=== PATIENT | female | born 1945 | race Caucasian/White ===

== ENCOUNTER → 2016-07-02 | Outpatient (CLI) | payer OTHER, MEDICARE ==
--- NOTE | 2016-07-02 13:46 | MAMMOGRAPHY REPORT ---
BILATERAL DIGITAL SCREENING MAMMOGRAM WITH CAD: 07/02/2016 CLINICAL HISTORY: Routine screening. Patient has no complaints. TECHNIQUE: Current study was also evaluated with a Computer Aided Detection (CAD) system. Bilatera l CC and MLO views were obtained. COMPARISON: Comparison is made to exams dated: 07/01/2015 mammogram, 06/27/2014 mammogram, 06/26/2013 mammogram, 06/16/2012 mammogram, 06/12/2011 mammogram, and 06/19/2011 mammogram - [facility]. BREAST COMPOSITION: There are scattered areas of fibroglandular density in both breasts. FINDINGS: No suspicious masses, calcifications, or areas of architectural distortion are noted in e ither breast. There has been no significant interval change compared to prior exams. IMPRESSION: ACR BI-RADS CATEGORY 1: NEGATIVE There is no mammographic evidence of malignancy. A 1 year screening mammogram is recommended. The p atient will receive written notification of the results. Approximately 10% of breast cancers are not detected with mammography. A negative mammographic repor t should not delay biopsy if a clinically suggestive mass is present. Heather Beltran M.D. ah/:07/02/2016 07:51:21 Percolator Operator: Ada COBOS(Marivel)(M), [facility] letter sent: Normal 1/2 BI-RADS Code: ACR BI-RADS Category 1: Negative
== END | disposition home or self-care (01) ==
LOC: C.MAMM 07:14
PROVIDERS: ATTEND Family Medicine
DX: Z12.31 Encounter for screening mammogram for malignant neoplasm of breast (principal)

== ENCOUNTER → 2016-09-02 | Outpatient (CLI) | payer OTHER, MEDICARE ==
--- NOTE | 2016-09-03 05:36 | SPLIT NIGHT TECHNICIAN REPORT ---
[facility] Split Night Polysomnogram - Balloon Design Printer Report Study date: 09/02/2016 Referring Physician: Michelle Birch M.D. Name: KJ HORNE Balloon Design Printer: Laura Vallecillo [facility] Date of : 1945 Height: 70 years, Height 5' 5" Sex: Female Weight: 191 lbs Age: 70 Neck Circum: 14 inches BMI: Medications: 31.78 Prescription: Omeprazole, Estradiol, Polyethelyne, Flunisolide, Azelastine, Prednisolone Acetate Ophthalmic suspension, Ketorolac Solution OTC: Asad-E 400 mg, Cranberry capsules 500 mg, Lecithin 1200 mg, Magnesium 500 mg, Flax seed oil, Potassium Gluconate 595 mg, Calcium 500 mg, Loratadine 10 mg, Aspirin 81 mg, Slo Niacin 500 mg, Red Rice Yeast 600 mg, [place] 3-6-9 daily, Co Q 10 50 mg daily, Eye Promise Restore, Garlic 1000 mg, Jessa Root 550 mg, Multi Vitamins, Vitamin C, Biotin 5000 mcg Patient History 70 yr. old female here for a possible split night sleep study. Patient was diagnosed with DOMINIK in 2003 but could not tolerate CPAP. Patients [place] Sleepiness Scale score is 5/24. Parameters Monitored NPSG: E1-M2, E2-M1, Fp1-M2, Fp2-M1, F3-M2, F4-M2, F4-M1, C3-M2, C4-M2, C4-M1, O1-M2, O2-M2, O2-M1, T3-M2, T4-M1, P3-M2, P4-M1, CHIN1, CHIN2, HR, EKG, Legs, PFLOW, SNOR, FLOW, CFLOW, Tidal Volume, THOR, ABDO, SpO2, PLTH, CPRESS, ETCO2 Wave, ETCO2, pH SLEEP SUMMARY DATA DIAGNOSTIC TREATMENT Lights Out: 9:52:04 PM 12:11:34 AM Lights On: 12:03:34 AM 5:23:04 AM Total Recording Time (TRT): 132.0 min. 312.0 min. Total Sleep Time (TST): 121.5 min. 229.5 min. NREM Time: 121.5 min. 194.0 min. REM Time: 0.0 min. 35.5 min. Sleep Period Time (SPT): 125.5 min. 274.5 min. Sleep Efficiency (SE): 92 % 74 % Sleep Latency: 6.0 min. 9.0 min. Arousal Index: 11.4 7.3 PAP Treatment Levels: 4, 5, 6, 7, 8 * Optimal Pressure(s) SLEEP STAGING DATA DIAGNOSTIC TREATMENT Duration (min) TST % Duration (min) TST % Stage Wake: 10.0 min. -- 82.5 min. -- WASO: 4.0 min. -- 45.0 min. -- NREM: 121.5 min. 100 % 194.0 min. 85 % Stage N1: 13.5 min. 11 % 21.0 min. 9 % Stage N2: 105.0 min. 86 % 137.5 min. 60 % Stage N3: 3.0 min. 2 % 35.5 min. 15 % REM: 0.0 min. 0 % 35.5 min. 15 % POSITIONAL DATA Event Count Index Event Count Index Supine: 146 72.1 26 6.8 Supine NREM: 146 72.1 25 7.7 Supine REM: N/A N/A 1 2 Non-Supine: N/A N/A N/A N/A Non-Supine NREM: N/A N/A N/A N/A Non-Supine REM: N/A N/A N/A N/A AROUSAL SUMMARY DATA: Event Count Index Event Count Index Apnea Arousals: 2 4.0 0 0.3 Hypopnea Arousals: 12 5.9 1 0.3 Snore Arousals: 0 0.0 0 0.0 PLM Arousals: 0 0.0 8 2.1 Non-Specific Arousals: 9 4.4 5 1.3 Total Arousals: 23 11.4 28 7.3 MYOCLONUS (PLM) Event Count Index Event Count Index PLM: 3 1.5 93 24.3 PLM AROUSAL: 0 0.0 8 2.1 PLM W/O AROUSAL 3 1.5 85 22.2 PLM W/RESP EVENT 1 0.0 5 0.0 MYOCLONUS (PLM) Event Count Index Event Count Index LM: 2 30.6 49 12.8 LM AROUSAL: 2 1.0 14 3.7 LM W/O AROUSAL LM W/RESP EVENT LM NON SPECIFIC 16 7.9 107 28.0 HEART RATE DATA DIAGNOSTIC TREATMENT Sleep (bpm): 89 86 REM (bpm): N/A 91 NREM (bpm): 91 92 Tachycardia Count: 0 0 Tachycardia Duration: 0.00 0 Bradycardia Count: 0 0 Bradycardia Duration: 0.00 0 DIAGNOSTIC PORTION TREATMENT PORTION RESPIRATORY DATA Event Count Index Event Count Index AHI: -- 72.1 -- 6.8 RDI: -- 72.1 -- 7 Obstructive Apnea: 7 3.5 0 0.0 Central Apnea: 0 0.0 1 0.3 Mixed Apnea: 1 0.5 0 0.0 Hypopnea: 138 68.1 25 6.5 RERA: 0 0.0 0 0.0 Total Apneas: 8 4.0 1 0.3 RESPIRATORY DATA REM NREM SLEEP REM NREM SLEEP Supine Position: Obstructive Apneas: N/A 7 7 0 0 0 Central Apneas: N/A 0 0 0 1 1 Mixed Apneas: N/A 1 1 0 0 0 Hypopneas: N/A 138 138 1 24 25 RERA N/A 0 0 0 0 0 Total Supine Events: N/A 146 146 1 25 26 Supine AHI: N/A 72.1 72.1 2 7.7 6.8 Supine RDI: N/A 72.1 72.1 1.7 7.7 6.8 REM NREM SLEEP REM NREM SLEEP Non-Supine Position: Obstructive Apneas: N/A N/A N/A N/A N/A N/A Central Apneas: N/A N/A N/A N/A N/A N/A Mixed Apneas: N/A N/A N/A N/A N/A N/A Hypopneas: N/A N/A N/A N/A N/A N/A RERA N/A N/A N/A N/A N/A N/A Total Supine Events: N/A N/A N/A N/A N/A N/A Supine AHI: N/A N/A N/A N/A N/A N/A Supine RDI: N/A N/A N/A N/A N/A N/A OXYGEN DESTAURATION DATA: Event Count Index Event Count Index REM Desaturations: N/A N/A 2 3.4 NREM Desaturations: 135 66.7 26 8.0 SNORE DATA DIAGNOSTIC TREATMENT Snore Time: 1.1 12:20:34 AM Snore TST%: 1 1 Snore Arousal Count: 0 0 Snore Arousal Index: 0.0 0.0 Desaturation Event Summary: Minimum %SpO2 Event Count Mean/Min/Max Duration(sec.) Desaturation Index % Time In Bed > 90 166 23.4 / 4.3 / 60.0 28.0 81.4 86 - 90 22 19.8 / 4.5 / 51.0 16.5 18.2 81 - 85 0 N/A 0.0 0.3 76 - 80 0 N/A 0.0 0.0 71 - 75 0 N/A 0.0 0.0 66 - 70 0 N/A 0.0 0.0 61 - 65 0 N/A 0.0 0.0 56 - 60 0 N/A 0.0 0.0 51 - 55 0 N/A 0.0 0.0 < 50 0 N/A 0.0 0.0 OXYGEN SATURATION DATA DIAGNOSTIC TREATMENT SpO2 Mean Sleep: 91 % 92 % SpO2 Mean REM: N/A % 91 % SpO2 Mean NREM: 91 % 92 % SpO2 Minimum Sleep: 83 % 87 % SpO2 Minimum REM: N/A % 87 % SpO2 Minimum NREM: 83 % 87 % Time Below 90% (TST): 26.7 13.0 Time Below 88% (TST): 8.6 0.7 Total REM NREM Awake <50% 0.0 min. 0.0 min. 0.0 min. 0.0 min. 51 - 60% 0.0 min. 0.0 min. 0.0 min. 0.0 min. 61 - 70% 0.0 min. 0.0 min. 0.0 min. 0.0 min. 71 - 80% 0.0 min. 0.0 min. 0.0 min. 0.0 min. 81 - 90% 81.2 min. 8.4 min. 68.4 min. 4.5 min. 91 - 100% 356.1 min. 27.1 min. 247.1 min. 81.8 min. Average 92 91 92 93 Minimum SpO2 82 87 83 82 Desaturation Event Index 22.9 3.4 30.6 4.6 # Desat. Events below 89% 90 1 88 1 Time(%) with Saturation below 89% 4.2 0.3 3.8 0.1 Time(min.) with Saturation below 89% 18.3 1.5 16.5 0.3 Recording Balloon Design Printer Comments: MS. Horne slept in the supine positione. No cardiac arrhythmia. PLMs noted. No bruxism noted. Snoring was noted and scored as a1 on a scale of 0 through 5. (0=no snoring, 5=snoring loud enough to be heard through a closed door or down the garcia way) At 12:11 pm, MS. Horne met specific Split-Night criteria during the diagnostic portion of this study. CPAP was initiated at +4 CMH2O room air and up-titrated to an optimal level of +8 CMH2O Cflex, 2. A small ResMed F10, was used during titration. MS. Horne awoke to use the restroom once during the night. MS. Horne stated,I usually roll from side to side. The final report will be interpreted and signed by a sleep physician. The completed physician report will then be placed in the patient medical record. Therapy Event: Therapy (cm H20) 0 4 5 6 7 8 Total Time at Pressure (min.) 131.5 36.1 11.0 22.0 38.0 204.4 TST at Pressure (min.) 121.5 25.6 11.0 22.0 38.0 132.9 # Periods 1 1 1 1 1 1 Sleep Onset (min.) 6.0 9.0 0.0 0.0 0.0 0.0 REM Onset (min.) N/A N/A N/A N/A 22.4 0.0 Sleep Efficiency % 92 70 100 100 100 65 Wakefulness (%) 7.6 29.1 0.0 0.0 0.0 35.0 Wakefulness (min.) 10.0 10.5 0.0 0.0 0.0 71.5 NREM 1 (%) 10.3 19.4 9.1 0.0 0.0 6.4 NREM 1 (min.) 13.5 7.0 1.0 0.0 0.0 13.0 NREM 2 (%) 79.8 51.6 90.9 79.2 26.3 39.9 NREM 2 (min.) 105.0 18.6 10.0 17.4 10.0 81.5 NREM 3 (%) 2.3 0.0 0.0 20.8 32.6 9.1 NREM 3 (min.) 3.0 0.0 0.0 4.6 12.4 18.5 REM (%) 0.0 0.0 0.0 0.0 41.1 9.7 REM (min.) 0.0 0.0 0.0 0.0 15.6 19.9 # Arousals 23 1 3 2 0 22 Arousal Index 11.4 2.3 16.4 5.5 0.0 9.9 # Snore 47 4 3 1 8 1 Snore Index 23.2 9.4 16.4 2.7 12.6 0.5 AHI 72.1 11.7 60.3 10.9 6.3 0.9 AHI Supine 72.1 11.7 60.3 10.9 6.3 0.9 AHI Non-Supine N/A N/A N/A N/A N/A N/A NREM AHI 72.1 11.7 60.3 10.9 8.0 1.1 REM AHI N/A N/A N/A N/A 3.8 0.0 RDI 72.1 11.7 60.3 10.9 6.3 0.9 # Obstructive 7 0 0 0 0 0 # Central Ap 0 0 0 0 0 1 # Mixed 1 0 0 0 0 0 # Hypopneas 138 5 11 4 4 1 RERAS 0 0 0 0 0 0 Total Respiratory Events 146 5 11 4 4 2 Time Below SpO2 89.00% (min.) 15.3 0.2 0.4 0.0 2.0 0.0 Mean NREM SpO2 (%) 91 91 91 91 92 92 Mean REM SpO2 (%) N/A N/A N/A N/A 91 92 Mean Sleep SpO2 (%) 91 91 91 91 91 92 Min NREM SpO2 (%) 83 88 87 89 87 89 Min REM SpO2 (%) N/A N/A N/A N/A 87 90 Position Supine (min.) 121.5 25.6 11.0 22.0 38.0 132.9 Position Non-supine (min.) 0.0 0.0 0.0 0.0 0.0 0.0 LM Index Sleep 32.1 28.1 98.6 95.4 67.8 15.4 LM Index NREM 32.1 28.1 98.6 95.4 99.0 18.1 LM Index REM N/A N/A N/A N/A 23.1 0.0 Mean Heart Rate (bpm) 89 90 89 89 91 84 Min Heart Rate (bpm) 74 85 84 82 83 72
--- NOTE | 2016-09-20 20:54 | POLYSOMNOGRAPH REPORT ---
REFERRING PERSON: Dr. Gladys Birch. CLINICAL FELLOW: Laura Vallecillo. Ms. Horne is a 70-year-old female sent for a possible split night sleep study. She was diagnosed with sleep apnea in 2003, but could not tolerate CPAP at that time. She has a history of snoring and unrefreshing sleep. Her [place] sleepiness scale score on the evening of this study is 5. BMI is 31.78. Following the technical and digital specifications of the [place] [employer] (AASM) a standard diagnostic polysomnogram was performed monitoring EEG, EOG, EMG (chin and leg deviations), oxygen saturation, body position, digital video, respiratory effort and airflow.? The sleep Stage and event scoring was based on the AASM Manual for the Scoring of Sleep and Associated Events 2007 edition.? Apneas are defined as a drop in the peak thermal sensor excursion by >90% of baseline for at least 10 seconds.? Hypopneas were scored using the 4% oxygen desaturation rule (4A-Medicare) and a decrease in the nasal pressure excursions by >30% of baseline for at least 10 seconds.? Respiratory effort-related arousal (RERA's) is defined as a sequence of breaths lasting at least 10 seconds characterized by increasing respiratory effort or flattening of the nasal pressure waveform leading to an arousal from sleep when the sequence of breaths does not meet criteria for an apnea or hypopnea.? Apnea Hypopnea index (AHI) is defined as the number of apneas and hypopneas occurring in an hour of sleep.? Respiratory disturbance index (RDI) is defined as the number of apneas, hypopneas, and RERA's occurring in an hour of sleep. Ms. Horne did qualify for a split night sleep study. She was observed for 121.5 minutes of sleep time. She spent 11% of her sleep time in N1 sleep, 86% in N2 sleep and 2% in N3 sleep. There were 23 cortical arousals during the diagnostic portion of this test. Nine of these arousals were nonspecific, 12 were due to hypopneic events, and 2 were due to apneic events. There were 3 periodic limb movements, none of which resulted in arousals. Mean saturation during sleep was 91% with desaturations to 83%. There were 7 obstructive apneas, no central apneas and 1 mixed apneas during observation. Additionally, there were 138 hypopneas. Apnea-hypopnea index was markedly elevated at 72.1. This is consistent with very severe sleep apnea. Therefore, at 12:00 a.m., this patient was started on CPAP therapy. She chose a small ResMed F10 mask for her titration. She was titrated over the remainder of the night from a CPAP pressure of 4 to a CPAP pressure of 8. Increasing pressures prevented apneas, hypopneas and arousals. She was observed on a pressure of 8 for 132.9 minutes of sleep time. 19.9 of those minutes were spent in supine REM sleep. AHI and RDI on this pressure were both 0.9. There were no desaturations less than 89% on this pressure. IMPRESSION AND PLAN: Successful split night sleep study in this patient with a history of obstructive sleep apnea. She has severe sleep apnea that seems to be treated effectively with CPAP at a pressure of 8. She should be started on CPAP at home. A download from her machine can be reviewed in 1 month both to check compliance as well as AHI and further pressure adjustments can occur at that time.
== END | disposition home or self-care (01) ==
LOC: C.NEUR 20:00
PROVIDERS: ATTEND Family Medicine
DX: G47.33 Obstructive sleep apnea (adult) (pediatric) (principal)

== ENCOUNTER → 2017-07-05 | Outpatient (CLI) | payer OTHER, MEDICARE ==
--- NOTE | 2017-07-05 15:07 | MAMMOGRAPHY REPORT ---
BILATERAL DIGITAL SCREENING MAMMOGRAM WITH CAD: 07/05/2017 CLINICAL HISTORY: Routine screening. Patient has no complaints. TECHNIQUE: Bilateral CC and MLO views were obtained. Current study was also evaluated with a Compute r Aided Detection (CAD) system. COMPARISON: Comparison is made to exams dated: 07/02/2016 mammogram, 07/01/2015 mammogram, 06/27/2014 ma mmogram, 06/26/2013 mammogram, 06/16/2012 mammogram, and 06/04/2009 mammogram - [facility]. BREAST COMPOSITION: There are scattered areas of fibroglandular density in both breasts. FINDINGS: There is a 5 mm nodular asymmetry in the superior middle to posterior right breast, only s een on the MLO view. Although this could represent normal overlapping fibroglandular tissue, additio nal spot compression tomosynthesis views and possible ultrasound are recommended. No other suspicious mass, architectural distortion or cluster of microcalcifications is seen. IMPRESSION: ACR BI-RADS CATEGORY 0: INCOMPLETE EVALUATION: NEED ADDITIONAL IMAGING EVALUATION The 5 mm nodular asymmetry in the superior right breast on the MLO view needs additional evaluation. The patient will be called to schedule an appointment. Approximately 10% of breast cancers are not detected with mammography. A negative mammographic report should not delay biopsy if a clinically suggestive mass is present. Gina Hammond M.D. ay/:07/05/2017 08:07:19 Greenhouse Grower: Michell Manuel, [facility] letter sent: Addl Imaging 0 BI-RADS Code: ACR BI-RADS Category 0: Incomplete Evaluation: Need Additional Imaging Evaluation
== END | disposition home or self-care (01) ==
LOC: C.MAMM 07:27
PROVIDERS: ATTEND Family Medicine
DX: Z12.31 Encounter for screening mammogram for malignant neoplasm of breast (principal)

== ENCOUNTER → 2017-07-09 | Outpatient (CLI) | payer OTHER, MEDICARE ==
--- NOTE | 2017-07-09 15:08 | MAMMOGRAPHY REPORT ---
UNILATERAL RIGHT DIGITAL DIAGNOSTIC MAMMOGRAM TOMOSYNTHESIS: 07/09/2017 CLINICAL HISTORY: Callback from screening mammogram for right breast asymmetry. TECHNIQUE: Breast tomosynthesis in addition to standard 2D mammography was performed. Spot compress ion right CC and MLO 2-D and tomosynthesis images were obtained. COMPARISON: Comparison is made to exams dated: 07/05/2017 mammogram, 07/02/2016 mammogram, 07/01/2015 mamm ogram, 06/27/2014 mammogram, 06/26/2013 mammogram, and 06/16/2012 mammogram - [facility]. BREAST COMPOSITION: There are scattered areas of fibroglandular density in the right breast. FINDINGS: The previously described asymmetry seen within the right superior breast on the MLO view on ly effaces on the additional spot compression views, and has the appearance of normal fibroglandular tissue on the tomosynthesis images. Findings are benign and compatible with normal fibroglandular ti ssue. There are no suspicious masses, areas of architectural distortion, or other suspicious finding s seen on the additional views. IMPRESSION: ACR BI-RADS CATEGORY 2: BENIGN The right breast asymmetry effaces on the additional views, and is benign and compatible with normal fibroglandular tissue. There is no mammographic evidence of malignancy. A 1 year screening mammogram is recommended. The patient has been verbally notified of the results. Approximately 10% of breast cancers are not detected with mammography. A negative mammographic report should not delay biopsy if a clinically suggestive mass is present. Heather Beltran M.D. ah/:07/09/2017 09:47:37 Treasury Specialist: Michell COBOS(Marivel)(M), [facility] letter sent: Normal 1/2 BI-RADS Code: ACR BI-RADS Category 2: Benign
== END | disposition home or self-care (01) ==
LOC: C.MAMM 09:20
PROVIDERS: ATTEND Family Medicine
DX: N64.89 Other specified disorders of breast (principal)